=== PATIENT | female | born 1950 ===

== ENCOUNTER 2016-07-01 09:48 | Emergency (ER) | payer OTHER, MEDICARE ==
[2016-07-01 10:12] VITALS: TEMP 98.1
--- NOTE | 2016-07-01 10:26 | ED PDOC ---
Arrival/HPI - General Chief Complaint: Cough, Cold, Congestion Time Seen by Provider: 07/01/16 10:17 - History of Present Illness Narrative History of Present Illness (Text): 07/01/16 10:26 Patient is a 65 y/o F with hx of asthma, presenting with congestion and non- productive cough. She reports that she saw her PMD 2 days ago who started azithromycin. She reports no improvement of symptoms so she came to the ED. Denies fever. Denies chest pain or shortness of breath. Denies nausea/vomiting , constipation/diarrhea. Reports that she has a hx of asthma and has been using her albuterol with only mild relief. Past Medical History - Cardiac Hx Hypertension: Yes - Pulmonary Hx Asthma: Yes - Psychiatric Hx Substance Use: No - Surgical History Hx Thyroidectomy: Yes Other/Comment: abdominoplasty - Anesthesia Hx Anesthesia: Yes Hx Anesthesia Reactions: No Family/Social History Family/Social History: No Known Family HX Smoking Status: Never Smoked Hx Alcohol Use: No Hx Substance Use: No Allergies/Home Meds Allergies/Adverse Reactions: Allergies No Known Allergies Allergy (Verified 07/01/16 10:09) Review of Systems - Review of Systems Constitutional: absent: Fatigue, Weight Change, Fevers, Night Sweats Eyes: absent: Vision Changes ENT: absent: Hearing Changes Respiratory: Cough. absent: SOB, Sputum Cardiovascular: absent: Chest Pain, Palpitations, Edema, Orthopnea, Syncope Gastrointestinal: absent: Abdominal Pain, Constipation, Diarrhea Genitourinary Female: absent: Dysuria Skin: absent: Rash Neurological: absent: Headache Hemo/Lymphatic: absent: Adenopathy Psychiatric: absent: Anxiety Physical Exam Vital Signs Temp Pulse Resp BP Pulse Ox 07/01/16 13:06 87 18 138/78 98 07/01/16 10:09 98.1 F 74 21 143/77 97 Temperature: Afebrile Blood Pressure: Normal Pulse: Regular Respiratory Rate: Normal Appearance: Positive for: Well-Appearing, Non-Toxic, Comfortable, Other (sounds congested) Pain Distress: None Mental Status: Positive for: Alert and Oriented X 3 - Systems Exam Head: Present: Atraumatic, Normocephalic Pupils: Present: PERRL Extroacular Muscles: Present: EOMI Conjunctiva: Present: Normal Mouth: Present: Moist Mucous Membranes Pharnyx: No: ERYTHEMA, EXUDATE Nose (External): Present: Other (clear rhinorrhea) Neck: Present: Normal Range of Motion. No: Meningeal Signs, MIDLINE TENDERNESS Respiratory/Chest: Present: Clear to Auscultation, Good Air Exchange. No: Respiratory Distress, Accessory Muscle Use Cardiovascular: Present: Regular Rate and Rhythm, Normal S1, S2. No: Murmurs Abdomen: No: Tenderness, Distention Upper Extremity: Present: Normal Inspection Lower Extremity: Present: Normal Inspection Neurological: Present: GCS=15, Speech Normal Psychiatric: Present: Alert, Oriented x 3 Medical Decision Making ED Course and Treatment: 07/01/16 10:26 Patient is reporting non productive cough and congestion. On day 2 of azithromycin. She is afebrile and well appearing with normal saturation. Will r/o pna. Will give duonebs and streoids and reevaluate 07/01/16 12:21 Symptoms improved after nebs and steroids. She has no wheezing and appears well. PF improved from 200 to 280. Cxray negative for pna. Patient is already on zpack. Used stone splitter to explain to patient that she should return with any worsening symptoms. Will dc with steroids and cough medication - RAD Interpretation Radiology Orders: 07/01/16 10:26 CHEST TWO VIEWS (PA/LAT) [RAD] Stat - Medication Orders Current Medication Orders: Discontinued Medications Albuterol/Ipratropium (Duoneb 3 Mg/0.5 Mg (3 Ml) Ud) 3 ml INH STAT STA Stop: 07/01/16 10:28 Last Admin: 07/01/16 10:50 Dose: 3 ml Albuterol/Ipratropium (Duoneb 3 Mg/0.5 Mg (3 Ml) Ud) Confirm Administered Dose 3 ml .ROUTE .STK-MED ONE Stop: 07/01/16 10:41 Ketorolac Tromethamine (Toradol) 30 mg IM STAT STA Stop: 07/01/16 12:25 Last Admin: 07/01/16 12:31 Dose: 30 mg Prednisone (Prednisone Tab) 60 mg PO STAT STA Stop: 07/01/16 10:28 Last Admin: 07/01/16 10:50 Dose: 60 mg Prednisone (Prednisone Tab) Confirm Administered Dose 60 mg .ROUTE .STK-MED ONE Stop: 07/01/16 10:41 Disposition/Present on Arrival - Present on Arrival Any Indicators Present on Arrival: No - Disposition Have Diagnosis and Disposition been Completed?: Yes Diagnosis: Cough, Upper respiratory infection Disposition: HOME/ ROUTINE Disposition Time: 12:22 Patient Plan: Discharge Condition: GOOD Discharge Instructions (ExitCare): Upper Respiratory Infection (ED), Viral Syndrome (ED), Cold Symptoms (ED) Print Language: ITALIAN Additional Instructions: Continue taking antibiotics as prescribed by PMD. Take steroids as prescribed. Use albuterol inhaler as needed. Take medication for cough as needed. Fluids and rest. Return to ED if condition worsens. Follow-up with PMD in 2 days. Prescriptions: Benzonatate [Tessalon Perles] 100 mg PO TID PRN #20 sgl PRN Reason: Cough Prednisone 50 mg PO DAILY #3 tablet Forms: [facility] ED School/Work Excuse
[2016-07-01] MEDS ORDERED: Albuterol-Ipratrop 3 mg / 0.5 (3 ml) UD INH STA (10:27)
[2016-07-01] MEDS ORDERED: Albuterol-Ipratrop 3 mg / 0.5 (3 ml) UD ONE (10:40)
[2016-07-01 13:07] VITALS: BP 138/78; PULSE 87; RESP 18; O2SAT 98
--- NOTE | 2016-07-01 15:06 | RAD ---
HISTORY: productive cough COMPARISON: [id number]. TECHNIQUE: Chest PA and lateral FINDINGS: LUNGS: No active pulmonary disease. PLEURA: No significant pleural effusion identified. No pneumothorax apparent. CARDIOVASCULAR: No radiographic findings to suggest acute or significant cardiovascular disease. OSSEOUS STRUCTURES: No significant abnormalities. VISUALIZED UPPER ABDOMEN: Normal. OTHER FINDINGS: None. IMPRESSION: No active disease. No significant interval change compared to the prior examination(s).
--- NOTE | 2016-07-02 02:08 | CARD ---
APPROVED REPORT EKG Measurement Heart [id number] <Conclusion> Normal sinus rhythm Left axis deviation Abnormal ECG
== END 2016-07-01 13:14 | disposition home or self-care (01) ==
LOC: H.ER 09:48
DX: J06.9 Acute upper respiratory infection, unspecified (principal); I10 Essential (primary) hypertension; J45.909 Unspecified asthma, uncomplicated; R05 Cough